=== PATIENT | male | born 1950 | race Caucasian/White ===

== ENCOUNTER 2017-10-21 06:32 | Inpatient (IN) | payer MEDICARE ==
[~2017-10-21] VITALS: Ht 180.3 cm; Wt 94.6 kg
[2017-10-21] VITALS (17 sets, daily range): BP systolic 95–154; BP diastolic 45–85; BMI 28.1; BMI 29.2
--- NOTE | ~2017-10-21 | CN ---
PATIENT NAME:JOSE MORALES MEDICAL RECORD: [id number] : 52 LOCATION:D.MS [id number] ADMIT DATE: 10/21/17 ACCOUNT: [id number] CONSULTING PHYSICIAN: ROBERTA REGAN MD REFERRING PHYSICIAN: BRENNEN RED MD DATE OF CONSULTATION: 10/25/2017 Cardiology Consultation DIAGNOSES: 1. Increased troponin. 2. Pulmonary edema. 3. Shortness of breath. 4. Coronary artery disease. 5. Status post coronary bypass graft surgery. 5. Hypertension. HISTORY OF PRESENT ILLNESS: This is a gentleman who underwent a renal biopsy became hypotensive after was found to have acute bleed around the kidney, was resuscitated with IV fluids as well as blood products. He then had shortness of breath and pulmonary edema. He has a mildly elevated troponin. He does have a history of coronary artery disease, status post coronary bypass graft surgery. He has no EKG changes. Has had no chest pain during this. Only the shortness of breath. Echocardiogram revealed an ejection fraction 60% with no significant valvular disease. PHYSICAL EXAMINATION: GENERAL APPEARANCE: Well nourished, well developed, appears stated age. Level of distress, comfortable. PSYCHIATRIC: Mental status, alert, normal affect. Orientation, oriented to time, place and person. EYES: Lids and conjunctiva, noninjected. No discharge, no pallor. ENT: Lips, teeth, gums, normal dentition. Oropharynx, no cyanosis, no pallor. NECK: Carotid arteries, bilateral normal upstroke, no bruits, no thrills. JUGULAR VEINS: No jugular venous pressure or distention. CERVICAL LYMPH NODES: Nontender, nonenlarged. THYROID: Not enlarged. Nontender. No nodules. LUNGS: Respiratory effort, unlabored. CHEST: Normal curvature. No thoracic deformity. No chest wall tenderness. Percussion, resonant. Auscultation, clear. No wheezes, no rales, no rhonchi. CARDIOVASCULAR: Precordial exam, nondisplaced. No heaves or pericardial thrills. Rate and rhythm, regular. Heart sounds, normal S1, normal S2. No S3, no gallop, no rub. Systolic murmur, not heard. Diastolic murmur, not heard. EXTREMITIES: No cyanosis, no edema. Peripheral pulses, full and equal in all extremities, except as noted. No bruits appreciated. ABDOMEN: Soft, nondistended. Normal aorta. No bruit. Nontender. No masses. Liver, nontender, no hepatomegaly. Spleen, nontender, no splenomegaly. MUSCULOSKELETAL: No joint tenderness. No joint swelling. No erythema. NEUROLOGICAL: Normal gait, normal strength, normal tone. SKIN: Warm and dry. OVERALL IMPRESSION: Elevated troponin secondary to his renal failure and possibly demand ischemia from the hypotensive event. However, at this time, he has no ongoing ischemic problems. His systolic blood pressure is high in the 160s to 150s. He is tachycardic in the 90s. His shortness of breath is not CONSULT REPORT [id number] JOSE MORALES secondary to heart failure. He has a normal ejection fraction, no significant valvular disease. At this time, no other cardiac workup/treatment is necessary. Would suggest restarting his blood pressure medications. TRANSINT:[id number] Voice Confirmation ID: [id number] DOCUMENT ID: [id number] ROBERTA REGAN MD at 1325 CC: [id number] DICTATION DATE: 10/25/17 0948 PIER MASTER: 10/25/17 1224 DIS IN 10/28/17 [facility] [address] [place] [address]
[2017-10-21 07:03] LABS: BASOPHILS 0 % (0-2); EOSINOPHILS 1.5 % (0-7); HEMATOCRIT 30.9 % (42.0-54.0); HEMOGLOBIN 10.3 g/dL (13.5-17.5); IMMATURE GRANULOCYTES 0.6 % (0-5); LYMPHOCYTES 31.7 % (15-50); MCH 32.5 pg (26.0-34.0); MCHC 33.3 g/dL (31.0-37.0); MCV 97.5 fL (80.0-100.0); MEAN PLATELET VOLUME 10.7 fL (7.4-10.4); MONOCYTES 7.6 % (2-11); NEUTROPHILS 58.6 % (40-80); PLATELET COUNT 122 10x3/uL (130-400); RBC 3.17 10x6/uL (4.20-6.10); RDW 13.4 % (11.5-14.5); WBC 3.4 10x3/uL (4.8-10.8)
[2017-10-21 07:11] LABS: APTT 27.3 SECONDS (22.8-39.4); INR 1.03 (0.85-1.17); PROTIME 13.1 SECONDS (11.6-15.0)
[2017-10-21 07:23] LABS: ANION GAP 11.1 mmol/L (8-16); CALCIUM 8.3 mg/dL (8.5-10.1); CARBON DIOXIDE 28.5 mmol/L (21.0-32.0); CREATININE - SERUM 3.6 mg/dL (0.6-1.3); POTASSIUM - SERUM 4.6 mmol/L (3.5-5.1)
[2017-10-21] MEDS ORDERED: AFRIN15 ML NASAL (10:41)
[2017-10-21] MEDS ORDERED: NORVASC5 MG PO (10:42)
[2017-10-21] MEDS ORDERED: ALDACTONE25 MG PO (10:43)
[2017-10-21] MEDS ORDERED: LASIX40 MG PO (10:44)
[2017-10-21] MEDS ORDERED: PRINIVIL20 MG PO (10:44)
[2017-10-21] MEDS ORDERED: PEPCID AC20 MG PO (10:46)
[2017-10-21] MEDS ORDERED: ASMANEX0.135 GM INH ×2 (10:47→10:48)
[2017-10-21] MEDS ORDERED: PLAVIX75 MG PO (10:48)
[2017-10-21] MEDS ORDERED: TRICOR145 MG PO (10:49)
[2017-10-21] MEDS ORDERED: GABAPENTIN100 MG PO (10:49)
[2017-10-21] MEDS ORDERED: HYDROCODON-ACE1 EAC7 PO (10:51)
[2017-10-21] MEDS ORDERED: ANTIVERT12.5 MG PO (10:52)
[2017-10-21] MEDS ORDERED: TOPROL XL25 MG (10:53)
[2017-10-21] MEDS ORDERED: NITROSTAT0.4 MG SL (10:54)
[2017-10-21] MEDS ORDERED: OMEPRAZOLE20 M1 PO (10:55)
[2017-10-21] MEDS ORDERED: ZOCOR40 MG PO (10:56)
[2017-10-21] MEDS ORDERED: PROBIOTIC BLEN1 EACH (10:56)
[2017-10-21] MEDS ORDERED: FLOMAX0.4 MG PO (11:01)
[2017-10-21] MEDS ORDERED: VISINE15 ML EACH EYE (11:01)
[2017-10-21] MEDS ORDERED: LANTUS SOL100 UNIT/1 SC (11:05)
[2017-10-21 13:49] LABS: BASOPHILS 0.3 % (0-2); EOSINOPHILS 1.4 % (0-7); HEMATOCRIT 28.6 % (42.0-54.0); HEMOGLOBIN 9.5 g/dL (13.5-17.5); IMMATURE GRANULOCYTES 0.3 % (0-5); LYMPHOCYTES 32.5 % (15-50); MCH 32.4 pg (26.0-34.0); MCHC 33.2 g/dL (31.0-37.0); MCV 97.6 fL (80.0-100.0); MEAN PLATELET VOLUME 10.8 fL (7.4-10.4); MONOCYTES 6.4 % (2-11); NEUTROPHILS 59.1 % (40-80); PLATELET COUNT 113 10x3/uL (130-400); RBC 2.93 10x6/uL (4.20-6.10); RDW 13.4 % (11.5-14.5); WBC 3.6 10x3/uL (4.8-10.8)
[2017-10-21 19:29] LABS: HEMATOCRIT 28.4 % (42.0-54.0); HEMOGLOBIN 9.5 g/dL (13.5-17.5)
[2017-10-22] VITALS (25 sets, daily range): BP systolic 100–147; BP diastolic 49–99; Ht 180.3 cm; Wt 94.6 kg
[2017-10-22 04:48] LABS: BASOPHILS 0 % (0-2); EOSINOPHILS 0.2 % (0-7); HEMATOCRIT 25.5 % (42.0-54.0); HEMOGLOBIN 8.5 g/dL (13.5-17.5); IMMATURE GRANULOCYTES 0.2 % (0-5); LYMPHOCYTES 11.7 % (15-50); MCH 32.1 pg (26.0-34.0); MCHC 33.3 g/dL (31.0-37.0); MCV 96.2 fL (80.0-100.0); MEAN PLATELET VOLUME 10.9 fL (7.4-10.4); MONOCYTES 7.5 % (2-11); NEUTROPHILS 80.4 % (40-80); PLATELET COUNT 116 10x3/uL (130-400); RBC 2.65 10x6/uL (4.20-6.10); RDW 14.4 % (11.5-14.5)
[2017-10-22 04:55] LABS: WBC 5.3 10x3/uL (4.8-10.8)
[2017-10-22 05:10] LABS: ANION GAP 13.3 mmol/L (8-16); CALCIUM 7.7 mg/dL (8.5-10.1); CARBON DIOXIDE 26.1 mmol/L (21.0-32.0); CREATININE - SERUM 3.9 mg/dL (0.6-1.3); POTASSIUM - SERUM 4.4 mmol/L (3.5-5.1)
[2017-10-22 07:18] LABS: HEMATOCRIT 24.9 % (42.0-54.0); HEMOGLOBIN 8.3 g/dL (13.5-17.5)
[2017-10-22 13:25] LABS: HEMATOCRIT 27.4 % (42.0-54.0); HEMOGLOBIN 9.3 g/dL (13.5-17.5)
[2017-10-22 19:43] LABS: HEMATOCRIT 26.1 % (42.0-54.0); HEMOGLOBIN 8.8 g/dL (13.5-17.5)
[2017-10-23] VITALS (22 sets, daily range): BP systolic 125–157; BP diastolic 45–90
[2017-10-23 04:26] LABS: BASOPHILS 0 % (0-2); EOSINOPHILS 0.2 % (0-7); HEMATOCRIT 27.3 % (42.0-54.0); HEMOGLOBIN 9.2 g/dL (13.5-17.5); IMMATURE GRANULOCYTES 0.2 % (0-5); LYMPHOCYTES 9.4 % (15-50); MCH 31.8 pg (26.0-34.0); MCHC 33.7 g/dL (31.0-37.0); MCV 94.5 fL (80.0-100.0); MEAN PLATELET VOLUME 11.2 fL (7.4-10.4); MONOCYTES 6.7 % (2-11); NEUTROPHILS 83.5 % (40-80); PLATELET COUNT 109 10x3/uL (130-400); RBC 2.89 10x6/uL (4.20-6.10); RDW 14.4 % (11.5-14.5); WBC 6.4 10x3/uL (4.8-10.8)
[2017-10-23 04:43] LABS: ANION GAP 9.8 mmol/L (8-16); CARBON DIOXIDE 26.3 mmol/L (21.0-32.0); CREATININE - SERUM 4.1 mg/dL (0.6-1.3); POTASSIUM - SERUM 4.1 mmol/L (3.5-5.1)
[2017-10-23 07:21] LABS: HEMATOCRIT 26.5 % (42.0-54.0)
[2017-10-23 13:14] LABS: HEMATOCRIT 26.3 % (42.0-54.0); HEMOGLOBIN 8.9 g/dL (13.5-17.5)
[2017-10-23 19:13] LABS: HEMATOCRIT 26.4 % (42.0-54.0); HEMOGLOBIN 9.1 g/dL (13.5-17.5)
[2017-10-24] VITALS (14 sets, daily range): BP systolic 125–164; BP diastolic 68–82
[2017-10-24 04:25] LABS: BASOPHILS 0.2 % (0-2); EOSINOPHILS 0.2 % (0-7); HEMATOCRIT 26.6 % (42.0-54.0); IMMATURE GRANULOCYTES 0.3 % (0-5); MCH 31.9 pg (26.0-34.0); MCHC 33.8 g/dL (31.0-37.0); MCV 94.3 fL (80.0-100.0); MEAN PLATELET VOLUME 10.8 fL (7.4-10.4); MONOCYTES 5.1 % (2-11); NEUTROPHILS 85.2 % (40-80); PLATELET COUNT 117 10x3/uL (130-400); RBC 2.82 10x6/uL (4.20-6.10); RDW 13.6 % (11.5-14.5); WBC 6.3 10x3/uL (4.8-10.8)
[2017-10-24 05:04] LABS: ANION GAP 13.5 mmol/L (8-16); CALCIUM 8.4 mg/dL (8.5-10.1); CARBON DIOXIDE 25.7 mmol/L (21.0-32.0); CREATININE - SERUM 4.1 mg/dL (0.6-1.3); MAGNESIUM - SERUM 2.1 mg/dL (1.8-2.4); PHOSPHOROUS 4.2 mg/dL (2.5-4.9); POTASSIUM - SERUM 4.2 mmol/L (3.5-5.1)
[2017-10-24 05:12] LABS: TROPONIN-I 3.027 ng/mL (0.000-0.060)
[2017-10-24 05:34] LABS: ERYTHROCYTE SEDIMENTATION RATE 107 mm/hr (0-20)
[2017-10-25 04:12] VITALS: BP 173/80
[2017-10-25 06:25] LABS: BASOPHILS 0 % (0-2); EOSINOPHILS 1.4 % (0-7); HEMATOCRIT 24.9 % (42.0-54.0); HEMOGLOBIN 8.6 g/dL (13.5-17.5); IMMATURE GRANULOCYTES 0.2 % (0-5); LYMPHOCYTES 14.3 % (15-50); MCH 32.5 pg (26.0-34.0); MCHC 34.5 g/dL (31.0-37.0); MEAN PLATELET VOLUME 11.2 fL (7.4-10.4); MONOCYTES 7.6 % (2-11); NEUTROPHILS 76.5 % (40-80); PLATELET COUNT 118 10x3/uL (130-400); RBC 2.65 10x6/uL (4.20-6.10); RDW 13.3 % (11.5-14.5)
[2017-10-25 06:32] LABS: WBC 4.2 10x3/uL (4.8-10.8)
[2017-10-25 06:34] LABS: INR 1.19 (0.85-1.17); PROTIME 14.7 SECONDS (11.6-15.0)
[2017-10-25 06:35] LABS: D-DIMER-QUANTITATIVE 1.93 ug/mLFEU (0.20-0.54)
[2017-10-25 07:06] LABS: CALCIUM 8.5 mg/dL (8.5-10.1); CARBON DIOXIDE 27.1 mmol/L (21.0-32.0); POTASSIUM - SERUM 4.1 mmol/L (3.5-5.1); TROPONIN-I 2.822 ng/mL (0.000-0.060)
[2017-10-25 09:49] VITALS: BP 139/70
[2017-10-25 16:07] VITALS: BP 131/68
[2017-10-25 21:17] VITALS: BP 155/72
[2017-10-26 04:50] VITALS: BP 149/49
[2017-10-26 06:15] LABS: BASOPHILS 0.3 % (0-2); EOSINOPHILS 1.2 % (0-7); HEMATOCRIT 24.6 % (42.0-54.0); HEMOGLOBIN 8.3 g/dL (13.5-17.5); IMMATURE GRANULOCYTES 0.3 % (0-5); LYMPHOCYTES 13.1 % (15-50); MCH 31.6 pg (26.0-34.0); MCHC 33.7 g/dL (31.0-37.0); MCV 93.5 fL (80.0-100.0); MONOCYTES 9.6 % (2-11); NEUTROPHILS 75.5 % (40-80); PLATELET COUNT 121 10x3/uL (130-400); RBC 2.63 10x6/uL (4.20-6.10); RDW 13.2 % (11.5-14.5); WBC 3.4 10x3/uL (4.8-10.8)
[2017-10-26 06:24] LABS: ANION GAP 10.8 mmol/L (8-16); CALCIUM 8.2 mg/dL (8.5-10.1); CARBON DIOXIDE 27.2 mmol/L (21.0-32.0); CREATININE - SERUM 4.1 mg/dL (0.6-1.3)
[2017-10-26 09:27] VITALS: BP 138/63
[2017-10-26 14:07] VITALS: BP 138/63
[2017-10-26 16:13] LABS: APPEARANCE HAZY (CLEAR); BILIRUBIN NEGATIVE (NEGATIVE); COLOR YELLOW (YELLOW); GLUCOSE 500 mg/dL (NEGATIVE); KETONE NEGATIVE (NEGATIVE); NITRITE NEGATIVE (NEGATIVE); PROTEIN 3+ mg/dL (NEGATIVE); SPECIFIC GRAVITY 1.015 (1.005-1.020); UROBILINOGEN NORMAL (NORMAL)
[2017-10-26 16:30] LABS: AMORPHOUS SEDIMENT <1+ /lpf (NONE SEEN); BACTERIA FEW /hpf (NONE SEEN); EPITHELIAL CELLS OCC /hpf (0-5); GRANULAR CAST 0-5 /lpf (NONE SEEN); HYALINE CAST OCC /lpf (NONE SEEN); RED CELLS - URINE 0-5 /hpf (0-5); WHITE CELLS - URINE 0-5 /hpf (0-5)
[2017-10-26 16:59] VITALS: BP 128/64
[2017-10-26 22:37] VITALS: BP 149/67
[2017-10-27 04:06] VITALS: BP 157/65
[2017-10-27 06:20] LABS: BASOPHILS 0 % (0-2); EOSINOPHILS 2.2 % (0-7); HEMOGLOBIN 8.9 g/dL (13.5-17.5); IMMATURE GRANULOCYTES 0.3 % (0-5); LYMPHOCYTES 18.8 % (15-50); MCH 32.4 pg (26.0-34.0); MCHC 34.2 g/dL (31.0-37.0); MCV 94.5 fL (80.0-100.0); MEAN PLATELET VOLUME 11.2 fL (7.4-10.4); MONOCYTES 9.9 % (2-11); NEUTROPHILS 68.8 % (40-80); PLATELET COUNT 141 10x3/uL (130-400); RBC 2.75 10x6/uL (4.20-6.10); RDW 13.3 % (11.5-14.5); WBC 3.7 10x3/uL (4.8-10.8)
[2017-10-27 06:50] LABS: CARBON DIOXIDE 25.8 mmol/L (21.0-32.0); POTASSIUM - SERUM 3.8 mmol/L (3.5-5.1)
[2017-10-27 07:04] LABS: CREATININE - SERUM 4.2 mg/dL (0.6-1.3); VANCOMYCIN - RANDOM 14.7 ug/mL (10.0-20.0)
[2017-10-27 08:25] VITALS: BP 145/70
[2017-10-27 08:44] LABS: C-REACTIVE PROTEIN 18.6 mg/dL (0.0-0.9)
[2017-10-27 08:45] LABS: TROPONIN-I 1.135 ng/mL (0.000-0.060)
[2017-10-27 11:37] VITALS: BP 131/63
[2017-10-27 16:05] VITALS: BP 141/65
[2017-10-27 22:41] VITALS: BP 144/68
[2017-10-28 03:58] VITALS: BP 154/64
[2017-10-28 05:50] LABS: BASOPHILS 0.2 % (0-2); HEMATOCRIT 25.5 % (42.0-54.0); HEMOGLOBIN 8.6 g/dL (13.5-17.5); IMMATURE GRANULOCYTES 0.4 % (0-5); LYMPHOCYTES 15.7 % (15-50); MCH 31.7 pg (26.0-34.0); MCHC 33.7 g/dL (31.0-37.0); MCV 94.1 fL (80.0-100.0); MEAN PLATELET VOLUME 10.7 fL (7.4-10.4); MONOCYTES 8.7 % (2-11); PLATELET COUNT 142 10x3/uL (130-400); RBC 2.71 10x6/uL (4.20-6.10); RDW 13.1 % (11.5-14.5); WBC 4.6 10x3/uL (4.8-10.8)
[2017-10-28 06:10] LABS: ANION GAP 12.7 mmol/L (8-16); CALCIUM 8.1 mg/dL (8.5-10.1); CARBON DIOXIDE 23.7 mmol/L (21.0-32.0); CREATININE - SERUM 4.1 mg/dL (0.6-1.3); POTASSIUM - SERUM 3.4 mmol/L (3.5-5.1); VANCOMYCIN - RANDOM 18.2 ug/mL (10.0-20.0)
[2017-10-28 08:12] VITALS: BP 159/76
[2017-10-28] MEDS ORDERED: ATROVENT 0.02%2.5 ML UPD (10:51)
[2017-10-28] MEDS ORDERED: LEVAQUIN250 MG PO (10:53)
[2017-10-29 15:35] LABS: ANA REFLEX - DIRECT Negative (Negative)
== END 2017-10-28 14:38 | disposition home health service (06) | DRG 919 ==
LOC: D.SP 06:32 → D.ICU 15:17 → D.MS 15:18 → D.ICU 15:18 → D.SP 15:18 → D.MS 10-24 13:36
PROVIDERS: General Practice; Internal Medicine; Internal Medicine Nephrology; Internal Medicine Pulmonary Disease
PROC: 0TB13ZX Excision of Left Kidney, Percutaneous Approach, Diagnostic (ICD-10-PCS; principal; 2017-10-21 09:00)
DX: N99.840 Postprocedural hematoma of a genitourinary system organ or structure following a genitourinary system procedure (principal); J81.0 Acute pulmonary edema; J18.9 Pneumonia, unspecified organism; D62 Acute posthemorrhagic anemia; N18.4 Chronic kidney disease, stage 4 (severe); J44.1 Chronic obstructive pulmonary disease with (acute) exacerbation; D61.818 Other pancytopenia; I12.9 Hypertensive chronic kidney disease with stage 1 through stage 4 chronic kidney disease, or unspecified chronic kidney disease; D47.2 Monoclonal gammopathy; I25.10 Atherosclerotic heart disease of native coronary artery without angina pectoris; Z95.5 Presence of coronary angioplasty implant and graft; D69.6 Thrombocytopenia, unspecified; N40.0 Benign prostatic hyperplasia without lower urinary tract symptoms; K21.9 Gastro-esophageal reflux disease without esophagitis; R06.03 Acute respiratory distress; E11.22 Type 2 diabetes mellitus with diabetic chronic kidney disease; E11.65 Type 2 diabetes mellitus with hyperglycemia; I95.81 Postprocedural hypotension; N05.9 Unspecified nephritic syndrome with unspecified morphologic changes; Y95 Nosocomial condition; F17.200 Nicotine dependence, unspecified, uncomplicated; R00.0 Tachycardia, unspecified

== ENCOUNTER 2018-05-20 21:24 | Inpatient (IN) | payer MEDICARE, MEDICAID ==
[~2018-05-20] VITALS: Ht 180.3 cm; Wt 87.5 kg
[~2018-05-20 21:24] MED LIST: AFRIN15 ML NASAL; ALDACTONE25 MG PO; ANTIVERT12.5 MG PO; ASMANEX0.135 GM INH; ATROVENT 0.02%2.5 ML UPD; FLOMAX0.4 MG PO; GABAPENTIN100 MG PO; HYDROCODON-ACE1 EAC7 PO; LANTUS SOL100 UNIT/1 SC; LASIX40 MG PO; LEVAQUIN250 MG PO; NITROSTAT0.4 MG SL; NORVASC5 MG PO; OMEPRAZOLE20 M1 PO; PEPCID AC20 MG PO; PLAVIX75 MG PO; PRINIVIL20 MG PO; PROBIOTIC BLEN1 EACH PO; TOPROL XL25 MG PO; TRICOR145 MG PO; VISINE15 ML EACH EYE; ZOCOR40 MG PO
[2018-05-20 21:58] LABS: BASOPHILS 0 % (0-2); EOSINOPHILS 1.8 % (0-7); HEMATOCRIT 29.1 % (42.0-54.0); HEMOGLOBIN 9.3 g/dL (13.5-17.5); IMMATURE GRANULOCYTES 0.5 % (0-5); LYMPHOCYTES 20.4 % (15-50); MCH 31.1 pg (26.0-34.0); MCV 97.3 fL (80.0-100.0); MONOCYTES 6.8 % (2-11); NEUTROPHILS 70.5 % (40-80); PLATELET COUNT 146 10x3/uL (130-400); RBC 2.99 10x6/uL (4.20-6.10); RDW 13.3 % (11.5-14.5)
[2018-05-20 22:10] LABS: ALBUMIN 2.7 g/dL (3.4-5.0); BILIRUBIN - TOTAL 0.21 mg/dL (0.2-1.3); CALCIUM 8.1 mg/dL (8.5-10.1); CARBON DIOXIDE 22.6 mmol/L (21.0-32.0); CREATININE - SERUM 4.6 mg/dL (0.6-1.3); MAGNESIUM - SERUM 2.2 mg/dL (1.8-2.4); PHOSPHOROUS 5.4 mg/dL (2.5-4.9); POTASSIUM - SERUM 5.6 mmol/L (3.5-5.1); PROTEIN - SERUM 6.4 g/dL (6.4-8.2)
[2018-05-20 22:30] VITALS: BP 155/72
[2018-05-20 23:00] VITALS: BP 120/59
[2018-05-20 23:30] VITALS: BP 124/59
[2018-05-20 23:40] LABS: APPEARANCE CLEAR (CLEAR); BILIRUBIN NEGATIVE (NEGATIVE); COLOR YELLOW (YELLOW); GLUCOSE 50 mg/dL (NEGATIVE); KETONE NEGATIVE (NEGATIVE); NITRITE NEGATIVE (NEGATIVE); PROTEIN 3+ mg/dL (NEGATIVE); UROBILINOGEN NORMAL (NORMAL)
[2018-05-20 23:42] LABS: BACTERIA NONE SEEN /hpf (NONE SEEN); EPITHELIAL CELLS 0-5 /hpf (0-5); RED CELLS - URINE 0-5 /hpf (0-5); WHITE CELLS - URINE NSEEN /hpf (0-5)
[2018-05-21] VITALS: BP 143/56
--- NOTE | 2018-05-21 00:50 | NUR ---
INTRODUCED SELF TO PATIENT, PATIENT HAD SPOUSE AND TEEN AGE CHILD AT THE BEDSIDE. RESP EVEN AND UNLABORED, NO COMPLAINTS OF PAIN OR DISCOMFORT AT THIS TIME.
[2018-05-21 04:11] VITALS: BP 122/76; BMI 26.7
[2018-05-21 05:20] VITALS: BP 135/68
[2018-05-21 06:57] LABS: HEMATOCRIT 28.6 % (42.0-54.0); HEMOGLOBIN 9.3 g/dL (13.5-17.5); MCH 31.6 pg (26.0-34.0); MCHC 32.5 g/dL (31.0-37.0); MCV 97.3 fL (80.0-100.0); MEAN PLATELET VOLUME 10.3 fL (7.4-10.4); PLATELET COUNT 133 10x3/uL (130-400); RBC 2.94 10x6/uL (4.20-6.10); RDW 13.3 % (11.5-14.5); WBC 3.9 10x3/uL (4.8-10.8)
[2018-05-21 07:08] LABS: INR 1.06 (0.85-1.17); PROTIME 13.3 SECONDS (11.6-15.0)
[2018-05-21 07:13] LABS: ANION GAP 16.3 mmol/L (8-16); CALCIUM 8.5 mg/dL (8.5-10.1); CARBON DIOXIDE 21.6 mmol/L (21.0-32.0); CREATININE - SERUM 4.5 mg/dL (0.6-1.3); MAGNESIUM - SERUM 2.3 mg/dL (1.8-2.4); PHOSPHOROUS 5.3 mg/dL (2.5-4.9); POTASSIUM - SERUM 5.9 mmol/L (3.5-5.1)
--- NOTE | 2018-05-21 07:30 | NUR ---
A/A/OX4. DENIES ANY PAIN OR DISCOMFORT AND NO REQUESTS VOICED. ASSESSMENT COMPLETED. AT BEDSIDE. BED IN LOWEST POSITION WITH SIDERAILS UP X 2 AND CALL LIGHT IN REACH. BAILEY PATENT AND DRAINING CLEAR LIGHT YELLOW URINE. WILL CONTINUE POC.
[2018-05-21 07:50] LABS: EOSINOPHILS 1 % (0-7); LYMPHOCYTES 17 % (15-50); MONOCYTES 3 % (2-11); NEUTROPHILS 79 % (40-80); PLATELET ESTIMATE NORMAL
--- NOTE | 2018-05-21 08:50 | NUR ---
RESTS IN BED WITH CALL LIGHT IN REACH. WILL CONT. PLAN OF CARE.
--- NOTE | 2018-05-21 09:00 | NUR ---
JAMAAL PUENTE NOTIFIED OF ELEVATED K+ LEVEL OF 5.9 AND ORDERS RECEIVED.
[2018-05-21 10:42] VITALS: Ht 180.3 cm; Wt 87.5 kg
[2018-05-21 11:03] VITALS: BP 146/69
--- NOTE | 2018-05-21 11:20 | NUR ---
16FR BAILEY INSERTED USING STERILE TECHNIQUE PER SUSHIL RN; PT TOLERATED WELL. STERILE URINE SPECIMEN COLLECTED AT THIS TIME. URINE IS CLEAR AND YELLOW. STAT LOCK IN PLACE, PT DENIES FURTHER NEEDS AT THIS TIME.
[2018-05-21 12:09] LABS: CREATININE - URINE 32.4 mg/dL (30-125); PROTEIN - URINE 172.4 mg/dL (0.0-11.9)
[2018-05-21 14:03] LABS: ANION GAP 16.3 mmol/L (8-16); CALCIUM 7.6 mg/dL (8.5-10.1); CARBON DIOXIDE 22.2 mmol/L (21.0-32.0); CREATININE - SERUM 4.4 mg/dL (0.6-1.3); POTASSIUM - SERUM 5.5 mmol/L (3.5-5.1)
[2018-05-21 15:45] VITALS: BP 140/64
[2018-05-21 19:48] LABS: ANION GAP 14.1 mmol/L (8-16); CALCIUM 7.8 mg/dL (8.5-10.1); CARBON DIOXIDE 20.9 mmol/L (21.0-32.0); CREATININE - SERUM 4.4 mg/dL (0.6-1.3)
--- NOTE | 2018-05-21 20:00 | NUR ---
RESUMING PT CARE. PT IS ALERT LAYING IN BED WITH NO C/O VOICED AT THIS TIME. FAMILY IS AT BEDSIDE. NO SIGNS OF DISTRESS NOTED. RESPIRATIONS EVEN AND UNLABORED. BED IN LOW POSITION WITH CALL LIGHT IN REACH. WILL CONTINUE TO MONITOR AND FOLLOW PLAN OF CARE.
[2018-05-21 20:37] VITALS: BP 157/61
[2018-05-22 00:56] VITALS: BP 150/1
[2018-05-22 01:59] LABS: ANION GAP 17.8 mmol/L (8-16); CALCIUM 7.5 mg/dL (8.5-10.1); CARBON DIOXIDE 20.9 mmol/L (21.0-32.0); CREATININE - SERUM 4.3 mg/dL (0.6-1.3); POTASSIUM - SERUM 4.7 mmol/L (3.5-5.1)
[2018-05-22 03:49] VITALS: BP 139/56
--- NOTE | 2018-05-22 04:15 | NUR ---
PT LAYING IN BED RESTING COMFORTABLY WITH EYES CLOSED. RESPIRATIONS EVEN AND UNLABORED. NO SIGNS OF DISTRESS. BED IN LOW POSITION WITH CALL LIGHT IN REACH. SIDE RAILS UP X 2. WILL CONTIUNE TO MONITOR PT AND FOLLOW PLAN OF CARE.
--- NOTE | 2018-05-22 08:27 | NUR ---
RECIEVED BEDSIDE REPORT. AM ROUNDS COMPLETED. VSS, AAOX3, NO S/S DISTRESS. RR UNLABORED. PT AT BED BEDSIDE. ASSESED PT LEGS. PT HAVE HEALING PRESSURE SORE TO THE LEFT ANKLE AND A REDDENED AREA ON RIGHT CAMARA. PT DENIES NEED FOR PAIN AT THIS TIME. WILL CPOC. CL IN REACH, BED IN LOW. SR UP X2.
--- NOTE | 2018-05-22 08:40 | NUR ---
EMPTIED PT BAILEY. PT PUT OUT 1600CCS. PT DENIES ANY FURTHER NEEDS AT THIS TIME. WILL CTM.
[2018-05-22 08:44] LABS: ANION GAP 18.9 mmol/L (8-16); CALCIUM 8.1 mg/dL (8.5-10.1); CARBON DIOXIDE 19.8 mmol/L (21.0-32.0); CREATININE - SERUM 4.3 mg/dL (0.6-1.3); POTASSIUM - SERUM 4.7 mmol/L (3.5-5.1)
[2018-05-22] MEDS ORDERED: NORVASC5 MG PO (09:34)
[2018-05-22] MEDS ORDERED: VELTASSA8.4 GM PO (09:34)
[2018-05-22 13:50] LABS: ANION GAP 15.4 mmol/L (8-16); CALCIUM 7.6 mg/dL (8.5-10.1); CARBON DIOXIDE 20.3 mmol/L (21.0-32.0); CREATININE - SERUM 4.4 mg/dL (0.6-1.3); POTASSIUM - SERUM 4.7 mmol/L (3.5-5.1)
--- NOTE | 2018-05-22 17:43 | NUR ---
READ DISCHARGE TEACHING TO PT. REMOVED PT BAILEY. PT TOLERATE WELL. REMOVED PERIPHERAL IV, PLACED A 2X2 GAUZE AND TAPED. RETURNED PT TELE TO KEIRY BORRERO TECH. PT VERBALIZE UNDERSTANDING OF DISCHARGE TEACHING. DAUGHTER TO WHEEL PT TO MAIN ENTRANCE. PT DC'D.
--- NOTE | 2018-05-22 18:08 | MORECARE ---
CASE MANAGEMENT DISCHARGE SUMMARY PATIENT: JOSE MORALES GENE UNIT: [id number] ADM DATE: 05/20/18 AGE: 68 : 51 SEX: M ROOM/BED: D.2104 AUTHOR: PILO ZAVALETA PHYSICIAN: REFERRING PHYSICIAN: CHELSIE ACUNA MD DATE OF SERVICE: 05/22/18 Discharge Plan Patient Name: JOSE MORALES [facility] [facility] 1950 Planned Disposition: Home with Home Health Anticipated Discharge Date: Discharge Date: 05/22/2018 Expected LOS: Initial Reviewer: [email or web address] Initial Review Date: 05/22/2018 Generated: 05/22/18 7:08 pm Patient Name: JOSE MORALES Page 13661 at 1808 All edits/amendments must be made on the electronic document DICTATION DATE: 05/22/181807 CRAFT MANAGER: SHAHID 05/22/181807 RPT#: [id number] DC DATE:05/22/18 STATUS: DIS IN [facility] [address] [place] [address] END OF REPORT
--- NOTE | 2018-05-22 18:16 | MORECARE ---
CASE MANAGEMENT DISCHARGE SUMMARY PATIENT: JOSE MORALES GENE UNIT: [id number] ADM DATE: 05/20/18 AGE: 68 : 51 SEX: M ROOM/BED: D.2104 AUTHOR: PILO ZAVALETA PHYSICIAN: REFERRING PHYSICIAN: CHELSIE ACUNA MD DATE OF SERVICE: 05/22/18 Discharge Plan Patient Name: JOSE MORALES Facility: [facility]:[place] : 1950 Planned Disposition: Home with Home Health Anticipated Discharge Date: 05/22/18 Discharge Date: 05/22/2018 Expected LOS: 2 Initial Reviewer: [email or web address] Initial Review Date: 05/22/2018 Generated: 05/22/18 7:16 pm DCPIA - Discharge Planning Initial Assessment Updated by [email or web address]: Christophe Doyle on 05/22/18 6:10 pm * Is the patient Alert and Oriented? Yes * How many steps to enter\exit or inside your home? NONE * PCP DR. KONG IN [place] * Pharmacy [facility] IN [place] * Preadmission Environment Home with Family * ADLs Partial Dependent * Partial ADLs (Assistance needed) Bathing Medication Management * Equipment Cane Glucometer Oxygen Wheelchair * Other Equipment HOME OXYGEN ONLY [employer] HOME PATIENT - MEDICAL EQUIPMENT PROVIDER * List name and contact numbers for known caregivers / representatives who currently or will assist patient after discharge: KI MORALES, SPOUSE, * Verbal permission to speak to the caregivers and representatives has been obtained from the patient. Yes * Community resources currently utilized Home Health * Please name any agencies selected above. [facility] * Additional services required to return to the preadmission environment? No * Can the patient safely return to the preadmission environment? Yes * Has this patient been hospitalized within the prior 30 days at any hospital? No External [facility]iders [facility] [place] Next Contact Date: 05/22/2018 Service Request Date: Service Type: Resolution: Reviewer: Comments: Last DP export: 05/22/18 5:08 p Patient Name: JOSE MORALES Page 11383 at 1816 All edits/amendments must be made on the electronic document DICTATION DATE: 05/22/181815 SPECIAL MACHINE OPERATOR: SHAHID 05/22/181815 RPT#: [id number] DC DATE:05/22/18 STATUS: DIS IN [facility] [address] [facility] [place] [address] END OF REPORT
--- NOTE | 2018-05-22 18:24 | MORECARE ---
CASE MANAGEMENT DISCHARGE SUMMARY PATIENT: JOSE MORALES GENE UNIT: [id number] ADM DATE: 05/20/18 AGE: 68 : 51 SEX: M ROOM/BED: D.2104 AUTHOR: WAQAR,DOC PHYSICIAN: REFERRING PHYSICIAN: CHELSIE ACUNA MD DATE OF SERVICE: 05/22/18 Discharge Plan Patient Name: JOSE MORALES Facility: [facility]:[place] : 1950 Planned Disposition: Home with Home Health Anticipated Discharge Date: 05/22/18 Discharge Date: 05/22/2018 Expected LOS: 2 Initial Reviewer: [email or web address] Initial Review Date: 05/22/2018 Generated: 05/22/18 7:24 pm Comments DCP- Discharge Planning Updated by [email or web address]: Christophe Doyle on 05/22/18 5:[address] Patient Name: JOSE MORALES Admission Status: ER Accout number: [id number] Admission Date: 05-20-2018 : 1950 Admission Diagnosis: Attending: CHELSIE ACUNA Current LOS: 2 Anticipated DC Date: 05-22-2018 Planned Disposition: Home with Home Health Primary Insurance: [employer] CHOICE PPO [facility] PLANNED EXTERNAL PROVIDER: [facility] Discharge Planning Comments: CM MET WITH PT IN ROOM TO DISCUSS DISCHARGE PLANNING AND NEEDS. PT REPORTS LIVING AT HOME DEPENDENTLY ON SPOUSE WHO HELPS WITH BATHING AND MEDICATION MANAGEMENT. PT HAS CANE, GLUCOMETER, HOME OXYGEN AND WHEELCHAIR FROM [facility] PATIENT. PT HAS NO OUTSIDE SERVICES ASSISTING IN THE HOME. CM DISCUSSED AVAILABILITY OF HOME HEALTH, REHAB SERVICES AND MEDICAL EQUIPMENT. PT DENIES DISCHARGE NEEDS EXCEPT FOR RESUMPTION OF HOME HEALTH SERVICES,, REPORTS HIS WILL PICK HIM UP FOR DISCHARGE HOME. CM LATER FOUND THAT PT DISCHARGED FROM HOSPITAL, FAXED DISCHARGE INFORMATION TO [facility] IN [place] AT [phone]. Dry Drug Worker: Christophe Doyle DCPIA - Discharge Planning Initial Assessment Updated by [email or web address]: Christophe Doyle on 05/22/18 6:10 pm * Is the patient Alert and Oriented? Yes * How many steps to enter\exit or inside your home? NONE * PCP DR. KONG IN [place] * Pharmacy [facility] IN [place] * Preadmission Environment Home with Family * ADLs Partial Dependent * Partial ADLs (Assistance needed) Bathing Medication Management * Equipment Cane Glucometer Oxygen Wheelchair * Other Equipment HOME OXYGEN ONLY [place] HOME PATIENT - MEDICAL EQUIPMENT PROVIDER * List name and contact numbers for known caregivers / representatives who currently or will assist patient after discharge: KI MORALES, SPOUSE, * Verbal permission to speak to the caregivers and representatives has been obtained from the patient. Yes * Community resources currently utilized Home Health * Please name any agencies selected above. [facility], [place] * Additional services required to return to the preadmission environment? No * Can the patient safely return to the preadmission environment? Yes * Has this patient been hospitalized within the prior 30 days at any hospital? No Last DP export: 05/22/18 5:16 p Patient Name: JOSE MORALES Page 56965 at 7334 All edits/amendments must be made on the electronic document DICTATION DATE: 05/22/181823 PHP WEB DEVELOPER: SHAHID 05/22/181823 RPT#: [id number] DC DATE:05/22/18 STATUS: DIS IN [facility] [address] [place] [address] END OF REPORT
== END 2018-05-22 17:45 | disposition home health service (06) | DRG 640 ==
LOC: D.ER 21:24 → D.M2 23:43
PROVIDERS: Family Medicine; Internal Medicine Nephrology; ADMIT Internal Medicine Nephrology
DX: E87.5 Hyperkalemia (principal); N18.6 End stage renal disease; I12.0 Hypertensive chronic kidney disease with stage 5 chronic kidney disease or end stage renal disease; E11.22 Type 2 diabetes mellitus with diabetic chronic kidney disease; D47.2 Monoclonal gammopathy

== ENCOUNTER → 2018-06-23 09:32 | Outpatient (CLI) | payer MEDICARE, MEDICAID ==
[2018-05-21 10:42] VITALS: BMI 26.6
[~2018-06-23 09:32] MED LIST changes: +SOLIQUA 100 UNIT3 ML SQ; +VELTASSA8.4 GM PO; +ZANTAC300 MG PO
== END | disposition home or self-care (01) ==
LOC: D.US 09:32
PROVIDERS: ATTEND Internal Medicine Nephrology
DX: I12.9 Hypertensive chronic kidney disease with stage 1 through stage 4 chronic kidney disease, or unspecified chronic kidney disease (principal); N18.5 Chronic kidney disease, stage 5; R80.9 Proteinuria, unspecified; E11.9 Type 2 diabetes mellitus without complications; D64.9 Anemia, unspecified

== ENCOUNTER 2018-06-27 07:33 | Day surgery (SDC) | payer MEDICARE, MEDICAID ==
[~2018-06-27] VITALS: Ht 180.3 cm; Wt 86.6 kg
[~2018-06-27 07:33] MED LIST changes: -SOLIQUA 100 UNIT3 ML SQ; -ZANTAC300 MG PO
[2018-06-27 07:53] LABS: BASOPHILS 0 % (0-2); EOSINOPHILS 2.7 % (0-7); HEMATOCRIT 24.8 % (42.0-54.0); HEMOGLOBIN 7.9 g/dL (13.5-17.5); LYMPHOCYTES 23.3 % (15-50); MCH 31.3 pg (26.0-34.0); MCHC 31.9 g/dL (31.0-37.0); MCV 98.4 fL (80.0-100.0); MEAN PLATELET VOLUME 9.7 fL (7.4-10.4); MONOCYTES 7.3 % (2-11); NEUTROPHILS 66.7 % (40-80); PLATELET COUNT 115 10x3/uL (130-400); RBC 2.52 10x6/uL (4.20-6.10); RDW 14.5 % (11.5-14.5)
[2018-06-27 08:09] LABS: ANION GAP 14.2 mmol/L (8-16); CARBON DIOXIDE 25.3 mmol/L (21.0-32.0); CREATININE - SERUM 3.8 mg/dL (0.6-1.3); POTASSIUM - SERUM 4.5 mmol/L (3.5-5.1)
[2018-06-27 08:23] LABS: INR 1.12 (0.85-1.17); PROTIME 13.9 SECONDS (11.6-15.0)
[2018-06-27] MEDS ORDERED: ZANTAC300 MG PO (08:25)
[2018-06-27] MEDS ORDERED: SOLIQUA 100 UNIT3 ML SQ (08:29)
[2018-06-27 08:36] VITALS: Ht 180.3 cm; Wt 86.6 kg
--- NOTE | 2018-06-30 17:27 | OP ---
PATIENT NAME: JACI PADILLA MEDICAL RECORD: [id number] :52 LOCATION:[facility] ADMISSION DATE: SURGEON: SCOTTY PRITCHARD MD DATE OF OPERATION: 06/27/2018 PREOPERATIVE DIAGNOSIS: Chronic kidney disease V. POSTOPERATIVE DIAGNOSIS: Chronic kidney disease V. OPERATION PERFORMED: Creation of a left cephalic arterial venous fistula. SURGEON: Scotty Pritchard MD ANESTHESIA: Regional nerve block plus monitored anesthesia or MAC per SENIOR RECRUITER. PREOPERATIVE NOTE: Mr. Padilla is a 68-year-old white male patient from [facility] who has quite severe chronic renal disease and is expected to need to start dialysis within a few months. He was referred to me for creation of an AV fistula. He as an outpatient, brought to the operating room today initially with plans to create a radiocephalic fistula. DESCRIPTION OF PROCEDURE: Under a regional nerve block plus IV sedation and monitoring per SENIOR RECRUITER, the patient was prepped and draped in sterile manner. A proximal venous tourniquet was applied, a Donna drain, and topical nitroglycerin ointment was used on the arm and forearm. I examined his arm with Duplex ultrasound to identify the cephalic vein at the wrist, which I thought at about 3-3.5 mm in diameter would be suitable for Meghan type wrist AV fistula. I made a longitudinal incision and dissected the vein and the artery from the surrounding tissues. The vein was treated repeatedly with topical papaverine and hydrostatically dilated and eventually the vein was ligated distally and transected and bevelled. Spasm in the vein was very intense and I really was unable to prepare the vein adequately for anastomosis. I extended my incision up the forearm for another inch or so and mobilized the vein more proximally, but the venous spasm continued and involved all of the vein that I exposed and I could not do a satisfactory radiocephalic fistula and we subsequently ligated the vein and abandoned attempts there. I examined him again with ultrasound and I noted he had a good median antebrachial vein, which divided into 2 median cubital veins, which drained both the basilic and cephalic veins, which were patent in the upper arm. I made a transverse incision and mobilized the median cubital veins and median antebrachial vein and controlled them with Silastic loops. The brachial artery was exposed just above its bifurcation. The basilic median cubital vein was occluded with the artery with doubly looped Silastic tapes in a [id number]-[id number] manner. The vein was opened and flushed proximally and distally with heparinized saline and then the artery was opened and flushed also with heparinized saline proximally and distally. The omej-ei-[id number] anastomosis was completed with running 7-0 Prolene, and when that was finished the suture line was hemostatic and good flow developed immediately within both the basilic and cephalic outflow tracts. I examined him then again with the duplex ultrasound and I thought that the cephalic vein outflow was excellent and I then ligated the basilic median cubital vein with 2-0 silk and a Hemoclip immediately above or proximal to the arteriovenous anastomosis. Excellent flow remained within the cephalic vein runoff. The wound was irrigated with Ancef and gentamicin solution as was the wrist incision and both incisions were then closed with interrupted inverted 3-0 Vicryl and running intracuticular 4-0 Monocryl and Dermabond glue. The incisions were dressed with Maxorb Ag, OPERATIVE REPORT [id number] JACI PADILLA Tegaderm, and Cavilon skin prep. He was awakened and with very good fistula function in the arm. He was taken to the recovery room. Blood loss during the operation was minimal, 5 cc, I estimated and certainly none was replaced. All sponges, instruments and needles were accounted for. No drain was used. PLAN: I had the patient continue on his same medications and diet. I will have him resume his Plavix on Saturday that is 48 hours from now. I will see him back in my office next week. He takes hydrocodone analgesics on a regular basis at home and I did not give him any additional prescription for pain medication. TRANSINT:[id number] Voice Confirmation ID: [id number] DOCUMENT ID: [id number] SCOTTY PRITCHARD MD at 1720 CC: BRENNEN RED MD [id number] DICTATION DATE: 06/27/18 1447 HORSESHOER: 06/27/182201 [facility] 06/27/18 [id number] [place] [address]
== END 2018-06-27 15:50 | disposition home or self-care (01) ==
LOC: D.OPS 07:33
PROVIDERS: Surgery; ATTEND Internal Medicine Nephrology
DX: E11.22 Type 2 diabetes mellitus with diabetic chronic kidney disease (principal); I12.0 Hypertensive chronic kidney disease with stage 5 chronic kidney disease or end stage renal disease; Z01.812 Encounter for preprocedural laboratory examination

== ENCOUNTER 2018-07-25 05:32 | Outpatient (CLI) | payer MEDICARE, MEDICAID ==
[2018-07-22 11:58] LABS: BASOPHILS 0.3 % (0-2); EOSINOPHILS 1.8 % (0-7); HEMATOCRIT 25.9 % (42.0-54.0); HEMOGLOBIN 8.5 g/dL (13.5-17.5); IMMATURE GRANULOCYTES 0.3 % (0-5); MCH 29.9 pg (26.0-34.0); MCHC 32.8 g/dL (31.0-37.0); MCV 91.2 fL (80.0-100.0); MEAN PLATELET VOLUME 9.8 fL (7.4-10.4); MONOCYTES 6.3 % (2-11); NEUTROPHILS 66.3 % (40-80); PLATELET COUNT 100 10x3/uL (130-400); RBC 2.84 10x6/uL (4.20-6.10); RDW 15.1 % (11.5-14.5); WBC 3.3 10x3/uL (4.8-10.8)
[2018-07-22 12:13] LABS: ALBUMIN 2.4 g/dL (3.4-5.0); ANION GAP 11.4 mmol/L (8-16); BILIRUBIN - TOTAL 0.19 mg/dL (0.2-1.3); CARBON DIOXIDE 26.6 mmol/L (21.0-32.0); CREATININE - SERUM 3.1 mg/dL (0.6-1.3); PROTEIN - SERUM 6.5 g/dL (6.4-8.2)
[2018-07-22 12:30] LABS: APTT 30.9 SECONDS (22.8-39.4); INR 1.1 (0.85-1.17); PROTIME 13.7 SECONDS (11.6-15.0)
[2018-07-22 12:52] VITALS: BP 155/66; BMI 27.2
--- NOTE | 2018-07-22 13:14 | NUR ---
Pt states that he took PLAVIX yesterday morning. Called Tatianna from specials and states that pt will have to be rescheduled to Saturday. Informed pt that procedure will be Saturday at 0800 but pt will need to be here at 0600. Pt verballizes understanding and agrees.
--- NOTE | 2018-07-22 13:18 | NUR ---
PT LEFT UNIT VIA WC AT 1318
[~2018-07-25] VITALS: Ht 180.3 cm; Wt 90.9 kg
[~2018-07-25 05:32] MED LIST changes: +SOLIQUA 100 UNIT3 ML SQ; +ZANTAC300 MG PO
[2018-07-25 07:49] LABS: HEMATOCRIT 23.9 % (42.0-54.0); HEMOGLOBIN 7.9 g/dL (13.5-17.5); MCH 30.3 pg (26.0-34.0); MCHC 33.1 g/dL (31.0-37.0); MCV 91.6 fL (80.0-100.0); MEAN PLATELET VOLUME 10.1 fL (7.4-10.4); PLATELET COUNT 94 10x3/uL (130-400); RBC 2.61 10x6/uL (4.20-6.10); RDW 15.1 % (11.5-14.5); WBC 2.8 10x3/uL (4.8-10.8)
[2018-07-25 08:00] LABS: APTT 27.8 SECONDS (22.8-39.4); INR 1.04 (0.85-1.17); PROTIME 13.1 SECONDS (11.6-15.0)
[2018-07-25 08:06] LABS: ALBUMIN 2.4 g/dL (3.4-5.0); ANION GAP 13.2 mmol/L (8-16); BILIRUBIN - TOTAL 0.12 mg/dL (0.2-1.3); CALCIUM 8.1 mg/dL (8.5-10.1); CARBON DIOXIDE 26.6 mmol/L (21.0-32.0); CREATININE - SERUM 2.8 mg/dL (0.6-1.3); POTASSIUM - SERUM 4.8 mmol/L (3.5-5.1); PROTEIN - SERUM 6.1 g/dL (6.4-8.2)
[2018-07-25 08:25] VITALS: Ht 180.3 cm; Wt 90.9 kg
--- NOTE | 2018-07-25 08:49 | NUR ---
H&H 7.9 & 23.9, ORDERS RECEIVED FROM JAZMIN FAJARDO TO TRANSFUSE 1 UNIT OF PRBCS BEFORE DISCHARE.
[2018-07-25 08:54] LABS: EOSINOPHILS 2 % (0-7); HYPOCHROMASIA 2+; LYMPHOCYTES 19 % (15-50); MONOCYTES 5 % (2-11); NEUTROPHILS 67 % (40-80); PLATELET ESTIMATE DECREASED
--- NOTE | 2018-07-25 09:00 | NUR ---
REC'D FROM [facility]. CT COMPLETED HOWEVER PARACENTESIS WAS CANCELLED PER DR TAVERA. RECEIVED IN REPORT RENAL WAS NOTIFIED AND PATIENT IS TO RECEIVE A UNIT OF PRBC'S.
--- NOTE | 2018-07-25 09:30 | NUR ---
REGULAR TRAY BROUGHT TO PATIENT. FAMILY AT BEDSIDE.
--- NOTE | 2018-07-25 09:40 | NUR ---
SPOKE WITH ROSITA CORNELIUS FOR [facility] REGARDING ORDERS FOR DC AFTER INFUSION. RELATED SHE WOULD ENTER THE ORDERS FOR DC.
--- NOTE | 2018-07-25 10:00 | NUR ---
WAITING FOR BLOOD TO TRANSFUSE PT.
--- NOTE | 2018-07-25 12:05 | NUR ---
UNIT #1PRBC'S INITIATED PER RIGHT PIV.
--- NOTE | 2018-07-25 13:50 | NUR ---
UNIT OF PRBC'S COMPLETED. IV DC'D WITH CATHETER INTACT BY Marvin ROCHA RN.
--- NOTE | 2018-07-25 14:10 | NUR ---
WRITTEN AND VERBAL DC INST. GIVEN TO PT. VERBALIZED UNDERSTANDING.
--- NOTE | 2018-07-25 14:20 | NUR ---
DC'D HOME WITH FAMILY VIA PRIVATE VEHICLE. WENT TO VEHICLE VIA PERSONAL WHEELCHAIR. STABLE AT TIME OF DC.
== END 2018-07-25 14:20 | disposition home or self-care (01) ==
LOC: D.SP 05:32
PROVIDERS: Specialist; ATTEND Internal Medicine Nephrology
DX: E11.22 Type 2 diabetes mellitus with diabetic chronic kidney disease (principal); I12.9 Hypertensive chronic kidney disease with stage 1 through stage 4 chronic kidney disease, or unspecified chronic kidney disease; N18.4 Chronic kidney disease, stage 4 (severe); E78.5 Hyperlipidemia, unspecified; D50.9 Iron deficiency anemia, unspecified; N04.9 Nephrotic syndrome with unspecified morphologic changes; R80.9 Proteinuria, unspecified; N25.81 Secondary hyperparathyroidism of renal origin; E55.9 Vitamin D deficiency, unspecified; D63.1 Anemia in chronic kidney disease; Z01.812 Encounter for preprocedural laboratory examination